=== PATIENT | male | born 1995 | race Caucasian/White ===

== ENCOUNTER 2024-05-13 19:40 | Emergency (ER) | payer OTHER, SELFPAY ==
[2024-05-13 19:43] VITALS: BP 136/84; BMI 29.2
--- NOTE | 2024-05-13 21:10 | ED.GENMED ---
History of Present Illness
General
Chief Complaint: Extremity Pain (non-traumatic)
Time Seen by Provider: 05/13/24 20:59
History of Present Illness
History of Present Illness:
HPI: The patient tripped on a curb rolling his right ankle. He also had an abrasion to the left anna which he is not concerned about. He denies any other injury. He noticed swelling to the lateral aspect of the right ankle. He had some trouble
walking due to pain.
EXAM:
GENERAL: Well appearing in no distress
NEUROLOGIC: Excellent strength all extremities, no coordination deficits
PSYCHIATRIC: Appropriate mental status, normal insight and judgement
EXTREMITIES: Minimal tenderness to the distal right lower extremity laterally, there is soft tissue swelling over the lateral malleolus/anterior talofibular ligament, there is fairly good active range of motion at the right ankle into flexion and
extension, Achilles function intact
SKIN: No rash, no lesions
TIME OF INITIAL ENCOUNTER: 9 PM
NUMBER AND COMPLEXITY OF PROBLEMS ADDRESSED AT THE ENCOUNTER
� Chronic conditions affecting care: No significant past medical history
� Acute Exacerbation and/or Progression of Chronic Illness: This is an acute problem
� Differential Diagnosis includes: Ankle sprain, ankle fracture, Achilles rupture
AMOUNT AND/OR COMPLEXITY OF DATA TO BE REVIEWED AND ANALYZED
� I performed an independent evaluation of and my interpretation is:
EKG:
CT:
X-rays: X-rays personally viewed�no evidence of fracture
Laboratory Studies:
Other:
� Review of other/old records: No old records available for review in [facility]
� Clinical information was obtained by an independent historian: I spoke to family at bedside
� Prescriptions/Medications Considered but not given: Considered analgesia however the patient declines
� Further testing considered but not performed: No indication for MRI at this point
RISK OF COMPLICATIONS AND/OR MORBIDITY OR MORTALITY OF PATIENT MANAGEMENT
� Social determinants of health affecting care: Lives at home
� Discussion with other providers:
� Escalation of care including admission/observation vs risk of discharge considered: The patient was splinted and he is to follow-up with Ortho if needed. Recommended NSAIDs
Phy Exam
Physical Exam
Physical Exam:
See HPI
Course
Orders/Labs/Results
Orders:
Orders
05/13/24 19:45
Ankle, Right 3 view CR [CR Ankle - Right Min 3 Views *] Urgent
Comment:
Reason For Exam: pain
05/13/24 21:06
Air Splint Right-Treatment ONCE
Vital Signs
Initial and Last Documented VS:
Initial Vital Signs
Temp Pulse Resp BP Pulse Ox
98.2 F 78 16 136/84 99
05/13/24 19:43 05/13/24 19:43 05/13/24 19:43 05/13/24 19:43 05/13/24 19:43
Last Documented Vital Signs
Temp Pulse Resp BP Pulse Ox
98.2 F 78 16 136/84 97
05/13/24 19:43 05/13/24 19:43 05/13/24 19:43 05/13/24 19:43 05/13/24 21:00
*Critical Care Note
Total Time (30-74mins, 75-104mins- exclusive of procedures): Not Applicable
ED Attending Note
-
Portions of this chart may have been created with voice recognition software.� Occasional wrong word or��sound alike� substitutions may have occurred due to the inherent limitations of voice recognition software.
Discharge Plan
Departure
Patient Disposition: Home (Routine Discharge)
Date of Disposition: 05/13/24
Time of Disposition: 21:13
Patient with high blood pressure during this ER visit?: Yes
Discharge Problem:
Ankle sprain
Referrals:
Joselo Rowland MD [Family Provider] -
Han Gaston MD [Active] - Follow up in 2-3 days
Activity Restrictions/Additional Instructions:
Take NSAIDs such as Aleve for pain. Return here if worse. I have given you the contact information for a local orthopedist if needed.
Interventions
Interventions:
*Risk Screen - Suicide Last Done: 05/13/24 19:43
*General Assessment Last Done: 05/13/24 20:16
*Neglect/Abuse Screening Last Done: 05/13/24 19:43
ED- Fall Risk Assessment Last Done: 05/13/24 19:43
*ED COVID-19 Vaccine History Last Done: 05/13/24 19:43
*Nursing Disposition Last Done: 05/13/24 21:33
ED-Skin Assessment Last Done: 05/13/24 20:15
ED-Peripheral Vascular Assessment Last Done: 05/13/24 20:15
ED-Musculoskeletal Assessment Last Done: 05/13/24 20:15
Discharge Date and Time
Discharge Date/Time: 05/13/24 21:34
Print Language: PERSIAN
== END 2024-05-13 21:34 | disposition home or self-care (01) ==
LOC: EMR 19:40
PROVIDERS: EMERGENCY PHYSICIAN Emergency Medicine; FAMILY PHYSICIAN Internal Medicine
DX: S93.401A Sprain of unspecified ligament of right ankle, initial encounter (principal); S80.812A Abrasion, left lower leg, initial encounter; X50.1XXA Overexertion from prolonged static or awkward postures, initial encounter
CPT/HCPCS: 99283; 73610